=== PATIENT | male | born 1965 | race Asian ===

== ENCOUNTER 2022-08-22 19:48 | Emergency (ER) | payer BC, SELFPAY ==
[2022-08-22 19:55] VITALS: BP 159/91; PULSE 105; RESP 20; TEMP 36.8; O2SAT 99; BMI 23.6
--- NOTE | 2022-08-22 20:23 | ED_ITS ---
HPI - Wound/Laceration General Chief Complaint: Laceration/Wound Stated Complaint: Cut left thumb while cooking Time Seen by Provider: 08/22/22 19:54 History of Present Illness HPI narrative: This 56-year-old male comes in with a avulsion type laceration of the distal portion of his left thumb. He was using a kitchen knife working with some food when he accidentally took a small portion of skin from the distal portion of his left thumb. He has about a 1 cm avulsion type injury with persistent bleeding. His tetanus is up-to-date and was last administered about 2 years ago. Related Data Allergies Allergy/AdvReac Type Severity Reaction Status Date / Time No Known Drug Allergies Allergy Verified 08/22/22 19:55 Review of Systems Status of ROS: Reports: 10 or more systems reviewed and unremarkable except as noted in History and below Narrative: Constitutional: No fevers, no weight gain or loss. Eyes: No discharge. No vision changes. HENT: No congestion, no sore throat, no ear pain. Cardiovascular: No chest pain, no palpitations. Respiratory: No shortness of breath, no wheezes, no cough. Gastrointestinal: No abdominal pain, no vomiting, no diarrhea. Genitourinary: No dysuria, no hematuria. Musculoskeletal: Normal range of motion. Skin: No rashes, no pruritis. Avulsion injury of the left thumb as described above. Neurological: No dizziness, weakness, sensory change, speech change. Endo/Heme/Allergies: No bruising or bleeding. No polydipsia. Pysch: no suicidality, no anxiety, no insomnia. All other systems reviewed and are negative. PFSH PFSH Social History Smoking Status: Never smoker Do you use any of these nicotine containing products: None Second hand tobacco smoke exposure: No How often do you have a drink containing alcohol: 2-3 times a week How many standard drinks containing alcohol do you have on a typical day: 1 or 2 How often do you have six or more drinks on one occasion: Never AUDIT-C Alcohol total score: 3 Non-prescribed substance use: denies use service: No Exam Narrative: Exam Narrative: Constitutional: Well-developed, well-nourished, no acute distress. HEENT: Normocephalic, atraumatic. Neck: Normal range of motion. Nontender. Supple. Heart: Intact distal pulses. Lungs: No chest discomfort. No wheezes, rhonchi, or rales. Abdomen: Nontender. Back: Normal range of motion. Extremities: Normal range of motion. Left thumb has a avulsion injury in the distal portion measuring about 1 cm in diameter. There is persistent blood oozing from the wound. Skin: Intact. No rash. Warm. No erythema or pallor. Neurologic: No altered sensation. No weakness. Alert and oriented. Psychiatric: No suicidality. No anxiety or depression. No insomnia. Nursing notes and vitals signs are reviewed. Const: Vital Signs, click to edit/add: Vital Signs - 24 hr 08/22/22 19:55 Temperature 98.2 F Pulse Rate [Pulse Oximeter] 105 H Respiratory Rate 20 Blood Pressure [Ri ght Upper Arm] 159/91 H Pulse Oximetry 99 Oxygen Delivery Me thod Room Air Course Vital Signs Vital signs: Initial Vital Signs Temperature 98.2 F 08/22/22 19:55 Temperature Source Temporal Artery Scan 08/22/22 19:55 Pulse Rate 105 H 08/22/22 19:55 Pulse Rhythm 08/22/22 19:55 Respiratory Rate 20 08/22/22 19:55 Blood Pressure 159/91 H 08/22/22 19:55 Blood Pressure Mean 113 08/22/22 19:55 Blood Pressure Position Supine 08/22/22 19:55 Pulse Oximetry 99 08/22/22 19:55 Oxygen Delivery Method 08/22/22 19:55 Vital Signs Temperature 98.2 F 08/22/22 19:55 Pulse Rate 105 H 08/22/22 19:55 Respiratory Rate 20 08/22/22 19:55 Blood Pressure 159/91 H 08/22/22 19:55 Pulse Oximetry 99 08/22/22 19:55 Oxygen Delivery Method 08/22/22 19:55 Temperature 98.2 F 08/22/22 19:55 Pulse Rate 105 H 08/22/22 19:55 Respiratory Rate 20 08/22/22 19:55 Blood Pressure 159/91 H 08/22/22 19:55 Pulse Oximetry 99 08/22/22 19:55 Oxygen Delivery Method 08/22/22 19:55 MDM - Wound/Laceration MDM Narrative Medical decision making narrative: This patient has an avulsion injury of the tip of his left thumb. This wound will heal properly by secondary intention but he has persistent bleeding that would need some intervention. His tetanus is up-to-date. I did describe options with the patient and it was elected to apply a tournikot finger exsanguinated her. The wound was then cleansed and silver nitrate was applied followed by Dermabond. A non stick dressing was applied and then a pressure dressing following this. Instructions were given regarding wound care. There is no sign of ongoing bleeding. Discharge Plan Discharge Clinical Impression: Avulsion of skin Patient Disposition: Home, Self-Care Condition: Improved Additional Instructions: Keep dressing on the finger for the next 1-2 days than keep the wound clean and dry. Follow up with MD as needed or return if worsening. Follow Up/Referrals: Provider,Not a Local [Primary Care Provider] - Stand Alone Forms: MyScreen Info Instructions
== END 2022-08-22 20:58 | disposition home or self-care (01) ==
PROVIDERS: Emergency Provider Emergency Medicine Emergency Medical Services; PCP Family Medicine
DX: S61.019A Laceration without foreign body of unspecified thumb without damage to nail, initial encounter (principal); W26.0XXA Contact with knife, initial encounter; Y93.G1 Activity, food preparation and clean up
CPT/HCPCS: 99282; 99283; 99284